=== PATIENT | female | born 1985 | race Caucasian/White ===

== ENCOUNTER → 2019-06-24 | Outpatient (CLI) | payer BC ==
[2019-06-24 18:35] LABS: BASO # 0.1 10^3/uL (0.0-0.2); BASO % 0.5 % (0.0-1.0); EOS # 0.1 10^3/uL (0.0-0.5); EOS % 0.5 % (0.0-3.0); HEMATOCRIT 39.7 % (36.0-47.0); LYMPH # 1.9 10^3/uL (1.5-5.0); LYMPH % 17.6 % (24.0-44.0); MEAN CORPUSCULAR HEMOGLOBIN 29.7 pg (27.0-33.0); MEAN CORPUSCULAR HGB CONC 32.7 g/dl (32.0-36.5); MEAN CORPUSCULAR VOLUME 90.6 fl (80.0-96.0); MONO # 0.5 10^3/uL (0.0-0.8); MONO % 4.4 % (0.0-5.0); NEUTROPHILS # 8.3 10^3/uL (1.5-8.5); NEUTROPHILS % 76.7 % (36.0-66.0); PLATELET COUNT, AUTOMATED 314 10^3/uL (150-450); RED BLOOD COUNT 4.38 10^6/uL (4.00-5.40); WHITE BLOOD COUNT 10.7 10^3/uL (4.0-10.0)
[2019-06-24 19:57] LABS: CHLAMYDIA DNA AMPLIFICATION NEGATIVE (NEGATIVE); GC DNA AMPLIFICATION NEGATIVE (NEGATIVE)
[2019-06-25 10:13] LABS: HEPATITIS C VIRUS ABY INDEX 0.1 INDEX (<0.8); HIV 1&2 SCREEN CENTAUR NEGATIVE (NEGATIVE); RUBELLA IgG QUALITATIVE IMMUNE (IMMUNE)
== END ==
LOC: M PLALAB 14:20
PROVIDERS: ATTEND Specialist
DX: Z32.01 Encounter for pregnancy test, result positive (principal)

== ENCOUNTER → 2019-08-21 | Outpatient (CLI) | payer BC ==
--- NOTE | 2019-08-22 04:37 | REP ---
Clinical: Anatomical evaluation. Comparison: None . Findings: Examination demonstrates a single live intrauterine in transverse (head to maternal right) presentation. motion is identified by technologist. Placenta is noted posterior and grade air zero without evidence for placenta previa or abruption. Amniotic fluid volume is normal. Cervix measures 4.0 cm in length and appears closed. No evidence for nuchal cord. Gestational age by LMP 21 weeks 1 day with GUILLERMO 12/31/2019 . Gestational age by current measurements 22 weeks 0 day with GUILLERMO 12/25/2019 . FHR equals 152 beats per minute. BPD 5.3 cm 22 weeks 0 days HC 20.0 cm 22 weeks 1 day AC 16.8 cm 21 weeks 6 days FL 3.8 cm 22 weeks 0 days HL 3.5 cm 22 weeks 1 day HC/AC ratio 1.19 Estimated weight 463 grams ( 76 percentile). Anatomical assessment demonstrates normal structures including cranium, choroid plexus, cavum, cerebellum/posterior fossa, facial features, lungs, four-chamber heart/ventricular outflow tracts, diaphragm, stomach, cord insertion/three-vessel cord, kidneys/bladder, spine, and extremities. Echogenic focus in the left cardiac ventricle likely prominent chordae tendineae. Impression: single live intrauterine in transverse lie demonstrating appropriate estimated weight. Anatomical assessment is essentially complete and normal as described above. Prominent chordae tendineae suggested. Electronically Signed by Omid Young MD 08/22/2019 04:28 A
== END ==
LOC: M RAD 14:55
PROVIDERS: ATTEND Specialist
DX: Z34.82 Encounter for supervision of other normal pregnancy, second trimester (principal)

== ENCOUNTER → 2019-12-01 | Outpatient (REF) | payer BC | LOC: M SFHCWAGY 16:38 | PROVIDERS: ATTEND Specialist | DX: Z34.83 Encounter for supervision of other normal pregnancy, third trimester (principal) ==

== ENCOUNTER 2020-01-07 12:39 | Inpatient (IN) | payer BC ==
[~2020-01-07] VITALS: Ht 172.7 cm; Wt 80.6 kg
[2020-01-07] VITALS (7 sets, daily range): BP systolic 105–130; BP diastolic 71–90
[2020-01-07] MEDS ORDERED: PRENTAB9 PO (13:02)
[2020-01-07] MEDS ORDERED: OXYTOCIN 30 UNITS IN 0.9% NaCl 500ML IV BAG (J2590) As Ordered ONE (14:08)
[2020-01-07] MEDS ORDERED: BUTORPHANOL 2 MG/ML INJ (J0595) IV ONE (14:15)
--- NOTE | 2020-01-07 14:21 | HPEPDOC ---
Obstetrical History & Physical General Date of Admission Jan 07, 2020 at 14:16 Primary Care Physician: SONIA CUEVA CNM History of Present Illness Patient is a 34-year-old female who is a at 41 weeks gestation with an GUILLERMO of 12/31/19 based off of her LMP and consistent with her first trimester ultrasound. She initiated care in her first trimester with [facility]. Her has been uncomplicated. She presents to L&D in active labor with complaints of contractions that started yesterday but became painful today at 11:00. She reports active movement, bloody show and contractions. She denies leaking of fluid. Chief Complaint: Active Labor Information Provided By: Patient Age: 34 : 3 Term: 2 Pre-term: 0 Abortions: 0 Livin Care Care: Good Care Dating Final EDC: Dec 31, 2019 Final EDC by: LMP EGA at Admission: 41 Antepartum Course Height (inches): 68 Pre- weight (lbs.): 153 Admission Weight (lbs.): 178 Change in Weight (lbs.): 25 Past Medical History Past Obstetrical History #1: Gestation: 41.5 Type of Delivery: Spontaneous Vaginal Del. (July 2015) Sex of : Female (7 lbs 8 oz) Complications: No Past Obstetrical History #2: Past Obstetrical History: Multigravida Date of Delivery: Aug 03, 2017 Gestation: 41.4 Type of Delivery: Spontaneous Vaginal Del. 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 History: Human papillomavirus(HPV) Past Medical History Surgical History: Denies/None Family History Significant Family History: No pertinent family hx Social History Marital Status: Family situation: Spouse/partner home * Smoker: non-smoker Alcohol: Denies Drugs: denies Abuse Violence Screening Have you been hit/kicked/slapp: No Have you been sexually assault: No Allergies Coded Allergies: No Known Allergies (Unverified , 01/07/20) Medications Scheduled No.137/Iron/Folic Acd ( Vitamin Tablet) 1 Each Tablet, 1 TAB PO DAILY Physical Examination Physical Examination GENERAL: Alert and oriented times three. BREAST: . ABDOMEN: Gravid and non-tender to touch. FETUS: Is vertex (VTX) by sterile vaginal examination (SVE), fetus is vertex (VTX) by Clark. HEART RATE: Regular rate and rhythm. LUNGS: Clear to auscultation (CTA). EXTREMITIES: No edema. No clonus. Deep tendon reflexes (DTRs) + 2. Laboratory Data 24H LABS Laboratory Tests 2 01/07/20 14:18: Serology Scanned Report Hepatitis B Testing Urine Culture: No Growth Pertinent Laboratoy Data Blood Type: O+ RBC Antibody Screen: Negative HIV: Negative Hepatitis B: Negative Hepatitis C: Negative Rapid Plasma Reagin: Nonreactive Rubella: Immune Chlamydia/Gonorrhea: Negative Group B Streptococcus: Negative Vaginal Examination Dilation: 8 cm Effacement: 100% Station: 0 Presentation: Cephalic presentation Position: Vertex (occiput) Assessment Heart Rate (FHR): 125 Variability: Moderate Accelerations: Positive Decelerations: None Tocometer Contractions: Yes Frequency: regular Multi-drug resistant Organism: No history of MDRO Assessment/Plan Assessment IUP at 41 weeks gestation Active labor GBS negative Category I FHR tracing Plan Admit to L&D. OOB ad kandace. Diet: clears. Group B Streptococcus (GBS) negative. Labs and intravenous (IV) per unit protocol. Patient desires IV pain medication. Given advanced dilation Stadol 1 mg given IV. Anticipate spontaneous vaginal delivery C-S as appropriate. SONIA CUEVA CNM Jan 07, 2020 14:21
[2020-01-07 14:31] LABS: HEMATOCRIT 35.1 % (36.0-47.0); HEMOGLOBIN 11.7 g/dl (12.0-15.5); MEAN CORPUSCULAR HEMOGLOBIN 28.5 pg (27.0-33.0); MEAN CORPUSCULAR HGB CONC 33.3 g/dl (32.0-36.5); MEAN CORPUSCULAR VOLUME 85.4 fl (80.0-96.0); PLATELET COUNT, AUTOMATED 361 10^3/uL (150-450); RED BLOOD COUNT 4.11 10^6/uL (4.00-5.40); WHITE BLOOD COUNT 14.1 10^3/uL (4.0-10.0)
[2020-01-07] MEDS ORDERED: OXYTOCIN DRIP 30 UNITS in IV 1 EA IV SCH (16:20)
--- NOTE | 2020-01-07 16:27 | DNPDOC ---
[facility] Delivery Note Delivery Note DATE OF DELIVERY: 01/07/20 at 1531 PREDELIVERY DIAGNOSIS: 41 weeks gestation and labor. POST DELIVERY DIAGNOSIS: Delivered. PROCEDURE: Spontaneous vaginal delivery. IRRIGATOR SPRINKLING SYSTEM: Sonia Ball CNM, MIGUEL ANESTHESIA: none. ESTIMATED BLOOD LOSS: 350 mL. FINDINGS: 9 pounds 12 ounces; 4410 grams; male , Score 9/9, macrosomia. DELIVERY SUMMARY: Patient is a 34-year-old female who is now a at 41 weeks gestation who presented to L&D in active labor. She progressed to fully dilated at 1458. AROM was done after consent from the patient to a small amount of clear fluid at 1504. She pushed to a living male in the OA position with restitution to ROT. The patient had to be repositioned on to her back from side lying to deliver shoulders. Once repositioned the anterior shoulder delivered with gentle downward traction and the corpus immediately followed at 1531. The baby was placed on the maternal abdomen active and crying. The cord was clamped after pulsation ceased and cut by the FOB. A 3-vessel cord was noted. The placenta delivered spontaneously and intact at 1536. Uterine hemostasis was achieved via rapid infusion of IV Pitocin and fundal massage. The vagina, perineum, and cervix was inspected and found to be intact. Mom plans to breast feed. Both mom and baby are in stable condition. All counts of instruments and sponges are correct. SONIA BALL CNM Jan 07, 2020 16:27
[2020-01-07] MEDS ORDERED: MEASLES,MUMPS,RUBELLA VACCINE INJ (MMR-II) (90707) SC SCH (16:30)
[2020-01-07] MEDS ORDERED: ANUSOL HC CREAM 30GM TOP PRN (16:30)
[2020-01-07] MEDS ORDERED: RHOGAM 300 MCG (1500 IU) INJ (J2790) IM SCH (16:30)
[2020-01-07] MEDS ORDERED: METHYLERGONOVINE MALEATE 0.2 MG TAB PO PRN (16:30)
[2020-01-07] MEDS ORDERED: DOCUSATE SODIUM 100 MG CAP PO PRN (16:30)
[2020-01-07] MEDS ORDERED: IBUPROFEN 600MG TAB PO PRN (16:30)
[2020-01-07] MEDS ORDERED: ACETAMINOPHEN TAB 650MG DOSE (2X325MG) PO PRN (16:30)
[2020-01-07] MEDS ORDERED: DIBUCAINE 1% OINTMENT 30GM TOP PRN (16:30)
[2020-01-07] MEDS: IBUPROFEN 800 MG TAB PO PRN (16:36)
[2020-01-07] MEDS: ACETAMINOPHEN 500 MG TAB PO PRN (19:51)
[2020-01-07] MEDS ORDERED: OMEPRAZOLE 20 MG CAP PO SCH (21:00)
[2020-01-08] MEDS: IBUPROFEN 800 MG TAB PO PRN ×2 (02:22→08:45)
[2020-01-08 05:40] VITALS: BP 101/57
[2020-01-08] MEDS ORDERED: PRENATAL VITAMINS CHEWABLE TABLET PO SCH (09:00)
[2020-01-08] MEDS: ACETAMINOPHEN 500 MG TAB PO PRN (12:22)
--- NOTE | 2020-01-08 16:26 | IPNPDOC ---
Progress Note Date of Service: Jan 08, 2020 Day#: 1 Progress Note SUBJECT: Patient is a 34-year-old female who is a who had an uncomplic ated of a living male. She has been ambulating, voiding spontaneously without issue and tolerating regular diet. Breast feeding without issue. OBJECTIVE: VITAL SIGNS: Within normal limits, afebrile. Alert and oriented times three. Breath sounds clear to auscultation. Heart rate: Regular rate and rhythm, no murmurs, rubs or gallops. Abdomen: Fundus firm at U-2. Soft, NTTP. Moderate amount of lochia. ASSESSMENT: DAy 1 PLAN: 1. Continue supportive nursing care. 2. Anticipate discharge to home tomorrow. VS, I&O, 24H, Fishbone Vital Signs/I&O Vital Signs Date Time Temp Pulse Resp B/P (MAP) Pulse Ox O2 Delivery O2 Flow Rate FiO2 01/08/20 05:40 97.7 76 18 101/57 (72) 01/07/20 18:00 97 Room Air I&O- Last 24 Hours up to 6 AM 01/08/20 05:59 Intake Total 500 ml Output Total 725 ml Balance -225 ml SONIA CUEVA CNM Jan 08, 2020 16:25
[2020-01-08 18:00] VITALS: BP 122/76
== END 2020-01-08 19:40 | disposition home or self-care (01) | DRG 560 ==
LOC: M LDO 12:39 → M LDI 14:16 → M OBS 18:16
PROVIDERS: ADMIT Advanced Practice Midwife; ATTEND Advanced Practice Midwife
PROC: 10E0XZZ Delivery of Products of Conception, External Approach (ICD-10-PCS; principal; 2020-01-07)
PROC: 10907ZC Drainage of Amniotic Fluid, Therapeutic from Products of Conception, Via Natural or Artificial Opening (ICD-10-PCS; 2020-01-07)
DX: O48.0 Post-term pregnancy (principal); Z37.0 Single live birth; Z3A.41 41 weeks gestation of pregnancy

== ENCOUNTER → 2020-06-30 | Outpatient (REF) | payer BC ==
[~2020-06-30] MED LIST: PRENTAB9 PO
== END ==
LOC: M SFHCWAGY 13:20
PROVIDERS: ATTEND Advanced Practice Midwife
DX: Z12.9 Encounter for screening for malignant neoplasm, site unspecified (principal); Z01.419 Encounter for gynecological examination (general) (routine) without abnormal findings

== ENCOUNTER → 2020-08-12 | Outpatient (CLI) | payer BC | LOC: M LABSMTC 13:30 | PROVIDERS: ATTEND Pediatrics | DX: Z20.822 Contact with and (suspected) exposure to COVID-19 (principal) ==